=== PATIENT | male | born 1955 | race Native Hawaiian/Other Pacific Islander ===

== ENCOUNTER 2019-04-07 22:33 | Emergency (ER) | payer OTHER ==
[~2019-04-07] VITALS: Ht 175.3 cm; Wt 77.1 kg
[~2019-04-07 22:33] MED LIST: BUSPIRONE10 MG PO; HALOPERIDOL0.5 MG PO; LEVETIRACETA1000 MG PO; LIPITOR20 MG PO; LORA1TAB17 PO; LORAZEPAM2 MG/ML IM; NEXIUM 24HR20 MG PO; TAMSULOSIN PO; ZIPR20CA PO
[2019-04-07 23:42] LABS: PLATELET COUNT 172 K/uL (142-355)
[2019-04-08] LABS: POTASSIUM 3.6 mmol/L (3.6-5.2)
[2019-04-08 01:28] VITALS: BP 110/69; TEMP 98.2
[2019-04-08] MEDS ORDERED: VALP250S3 PO (02:32)
[2019-04-08] MEDS ORDERED: LORA0.5T17 PO (02:32)
[2019-04-08] MEDS ORDERED: CITALOPRAM20 M1 PO (02:33)
[2019-04-08] MEDS ORDERED: LEVE5MLUD PO (02:35)
[2019-04-08] MEDS ORDERED: REGULOID PO (02:36)
[2019-04-08] MEDS ORDERED: MULTI VITAMIN A1 TAB PO (02:37)
[2019-04-08] MEDS ORDERED: FAMO20TA4 PO (02:37)
[2019-04-08] MEDS ORDERED: ASCORBIC ACD500 MG PO (02:38)
[2019-05-11] MEDS ORDERED: TAMS0.4C PO (09:21)
[2019-05-11] MEDS ORDERED: METAMUCIL0.52 GM PO (09:21)
[2019-05-11] MEDS ORDERED: VALPROIC ACID10 ML PO (09:21)
[2019-05-11] MEDS ORDERED: MEDR2.5T19 PO (09:22)
[2019-05-11] MEDS ORDERED: PANTOPRAZOLE 40MG TA PO (09:22)
[2019-05-11] MEDS ORDERED: OLAN2.5T2 PO (09:22)
[2019-05-11] MEDS ORDERED: HALO5INJ3 IM (09:23)
[2019-05-11] MEDS ORDERED: ATOR20TA2 PO (09:23)
[2019-05-11] MEDS ORDERED: ESCI10TA PO (09:23)
[2019-05-11] MEDS ORDERED: TYLENOL325 MG PO (09:23)
[2019-05-11] MEDS ORDERED: LEVE5MLUD PO (09:24)
[2019-05-11] MEDS ORDERED: ONDA4TAB3 PO (09:24)
== END 2019-04-08 01:30 | disposition other institution (70) ==
LOC: ED 22:33
PROVIDERS: Emergency Medicine
DX: F03.91 Unspecified dementia, unspecified severity, with behavioral disturbance (principal); R00.1 Bradycardia, unspecified; Z04.6 Encounter for general psychiatric examination, requested by authority
CPT/HCPCS: 80053; 85027; 93005; 99285

== ENCOUNTER 2019-04-17 13:00 | Inpatient (IN) | payer OTHER ==
[2019-04-17] VITALS (12 sets, daily range): BP systolic 102–136; BP diastolic 53–84; TEMP 99–99.1; Ht 175.3 cm; Wt 73.6 kg
[~2019-04-17] VITALS: Ht 175.3 cm; Wt 73.6 kg
[~2019-04-17 13:00] MED LIST changes: +ASCORBIC ACD500 MG PO; +CITALOPRAM20 M1 PO; +FAMO20TA4 PO; +LEVE5MLUD PO; +LORA0.5T17 PO; +MULTI VITAMIN A1 TAB PO; +REGULOID PO; +VALP250S3 PO
[2019-04-17 15:47] LABS: POTASSIUM 3.2 mmol/L (3.6-5.2)
[2019-04-18] VITALS (22 sets, daily range): BP systolic 15–124; BP diastolic 42–77; TEMP 98.7–99.5
[2019-04-19] VITALS (24 sets, daily range): BP systolic 86–133; BP diastolic 47–95; TEMP 98.4–99.3
[2019-04-19 07:26] LABS: PLATELET COUNT 188 K/uL (142-355)
[2019-04-19 08:00] LABS: POTASSIUM 3.5 mmol/L (3.6-5.2)
[2019-04-20] VITALS (13 sets, daily range): BP systolic 87–107; BP diastolic 49–63; TEMP 98–99.2
[2019-04-20] MEDS ORDERED: ENOX40IN SC (17:26)
[2019-04-20] MEDS ORDERED: ESCI20TA PO (17:30)
[2019-04-20] MEDS ORDERED: ZIPR20IN IM (17:32)
[2019-04-20] MEDS ORDERED: SILVADENE1 % EX (17:33)
[2019-04-20] MEDS ORDERED: DIPH50IN IV (17:35)
[2019-04-20] MEDS ORDERED: HALO5INJ3 IV (17:37)
[2019-04-20] MEDS ORDERED: ONDA2INJ2 IV (17:38)
[2019-04-20] MEDS ORDERED: VALPROIC ACID10 ML PO (17:39)
[2019-04-20] MEDS ORDERED: LEVE5MLUD PO (17:42)
[2019-04-20] MEDS ORDERED: PANT40IN IV (17:43)
[2019-04-20] MEDS ORDERED: CLIN300I2 IV (17:45)
[2019-04-20] MEDS ORDERED: IPRATROPIUM/ INH (17:47)
[2019-04-20] MEDS ORDERED: CEFT1INJ4 IV (17:49)
[2019-04-20] MEDS ORDERED: [UNRECOGNIZED DRUG - CODE] IV (17:53)
[2019-05-11] MEDS ORDERED: TAMS0.4C PO (09:21)
[2019-05-11] MEDS ORDERED: VALPROIC ACID10 ML PO (09:21)
[2019-05-11] MEDS ORDERED: METAMUCIL0.52 GM PO (09:21)
[2019-05-11] MEDS ORDERED: OLAN2.5T2 PO (09:22)
[2019-05-11] MEDS ORDERED: PANTOPRAZOLE 40MG TA PO (09:22)
[2019-05-11] MEDS ORDERED: MEDR2.5T19 PO (09:22)
[2019-05-11] MEDS ORDERED: HALO5INJ3 IM (09:23)
[2019-05-11] MEDS ORDERED: TYLENOL325 MG PO (09:23)
[2019-05-11] MEDS ORDERED: ATOR20TA2 PO (09:23)
[2019-05-11] MEDS ORDERED: ESCI10TA PO (09:23)
[2019-05-11] MEDS ORDERED: ONDA4TAB3 PO (09:24)
[2019-05-11] MEDS ORDERED: LEVE5MLUD PO (09:24)
== END 2019-04-20 14:39 | disposition other institution (70) | DRG 194 ==
LOC: ICU 13:00
PROVIDERS: ADMIT Family Medicine
DX: J18.8 Other pneumonia, unspecified organism (principal); G40.802 Other epilepsy, not intractable, without status epilepticus; F01.51 Vascular dementia, unspecified severity, with behavioral disturbance; R53.83 Other fatigue; R53.1 Weakness; E78.49 Other hyperlipidemia; S06.890S Other specified intracranial injury without loss of consciousness, sequela; K21.9 Gastro-esophageal reflux disease without esophagitis; N40.0 Benign prostatic hyperplasia without lower urinary tract symptoms
CPT/HCPCS: 80053; 80164; 81000; 83605; 84132; 85027; 87040; 87070; 87205; 94640; 94664; 94668; 94760; J0696; J1200; J1630; J1650; J2930; J3480; J3490